=== PATIENT | female | born 1965 | race African-American/Black ===

== ENCOUNTER → 2024-07-22 | Outpatient (CLI) | payer MEDICAID ==
[~2024-07-22] VITALS: Ht 160 cm; Wt 148.3 kg
[2024-07-22] MEDS: REGADENOSON 0.4 MG/5 ML SYRG IV ONE ×2 (08:27→10:04)
--- NOTE | 2024-07-22 21:52 | DVHSR ---
APPROVED REPORT Exam: Nuclear Stress Test Indication: HTN BMI: 0 Medical History Medical History: HTN, HLD, Pre-DM, Asthma Allergies: No known drug allergies Stress Test Details Stress Test: Pharmacologic stress testing performed using 0.4 mg of regadenoson per 5 mL given IV ov er 10 seconds. HR Resting HR: 79 bpmMax Heart Rate (APMHR): 162 bpm Max HR Achieved: 87 bpmTarget HR (85% APMHR): 138 bpm % of APMHR: 54 Recovery HR: 82 bpm BP Resting BP: 137/64 mmHg Recovery BP: 132/77 mmHg ECG Resting ECG: Sinus Rhythm Clinical Reason for Termination: Completed protocol Nurse Comments Recieved pt. from [email or web address]. A/Ox4 on RA. Connected to dairy cattle farmer, VS stable. PIV flushes well. Reviewed POC. Pt. verbalized understanding of procedure including risks and side ef fects, agrees for stress testing. Lexiscan stress test performed per protocol. [facility] administered Cardiolite. Pt. tolerated well . Pt. stable, no change on exam. VS returned to baseline. Transferred to [email or web address] via wheelchair w/ te ch. Stress ECG Conclusion There is no evidence of vasodilator induced myocardial ischemia. Left ventricular systolic function is preserved. NM EXAM: Myocardial Perfusion REST/STRESS Imaging Protocol: Rest Tc-99m/Stress Tc-99m 1 day Resting Data Rest SPECT myocardial perfusion imaging was performed in supine position 60 minutes following the int ravenous injection of 15 mCi of Tc-99m Sestamibi. Time of rest injection: 0830 Time of rest imagin Administration Route: IV Administration Site: Left Arm Pharmacologic Stress Pharmacologic stress test was performed by injecting Regadenoson 0.4 mg IV push followed by the intra venous injection of 36 mCi of Tc-99m Sestamibi. Time of stress injection: 1005 Time of stress imagin Administration Route: IV Administration Site: Left Arm Gated Stress SPECT was performed 60 minutes after stress injection. The images were gated to evaluate regional wall motion and calculate left ventricular ejection fracti on. Stress only was performed in the Supine position. Study Quality Study: Good Study Data Post stress, the left ventricular ejection was 71%.. SSS: 0 SRS: 0 SDS: Perfusion Normal perfusion on both the stress and rest images. Wall Motion Normal left ventricular size and function with no regional wall motion abnormalities. Nuclear Conclusion ECG Findings: negative for ischemia Clinical Findings: negative for ischemia Nuclear Findings: negative for ischemia Left Ventricular Function: normal Risk Study: low There is no evidence of vasodilator induced myocardial ischemia. Left ventricular systolic function is preserved.
== END | disposition home or self-care (01) ==
LOC: XYW 08:00
PROVIDERS: ATTEND Specialist
DX: I10 Essential (primary) hypertension (principal); E78.5 Hyperlipidemia, unspecified; J45.909 Unspecified asthma, uncomplicated; R73.03 Prediabetes; E66.01 Morbid (severe) obesity due to excess calories; Z68.41 Body mass index [BMI] 40.0-44.9, adult
CPT/HCPCS: 78452; 93017; A9500; J2785